=== PATIENT | female | born 1925 | race Caucasian/White ===

== ENCOUNTER 2016-12-22 16:33 | Inpatient (IN) | payer MEDICARE, BC ==
[2016-12-22] VITALS (157 sets, daily range): BP systolic 116; BP diastolic 86–96; PULSE 113; TEMP 100.6; O2SAT 77–95
[~2016-12-22] VITALS: Ht 170.2 cm; Wt 51.7 kg
[~2016-12-22 16:33] MED LIST: AGGRENOX ER 251 CER PO; ALBUTEROL SULFAT3 M3 IH; ANTIVERT 25MG25 MG PO; AQUAZIDE H50 MG PO; BIAXIN 500MG T500 MG PO; CARDIZEM CD 24240 MG PO; CARDIZEM LA240 MG PO; CEFTIN 250250 MG/TAB PO; CEFTIN500 MG PO; COLACE 100100 MG/CAP PO; HYDRODIURIL50 MG PO; LEVAQUIN 2250 MG/TAB; LIPITOR20 MG PO; LUMIGAN 2.5 ML2.5 M1 OP; LUMIGAN 5 ML5 ML OP; MIRALAX PA17 GM/Dose PO; PREMARIN0.3 MG PO; PROAIR HFA0.09 MG/AC IH; RT ADVAIR HFA 1112 G IH; RT SPIRIVA18 MCG IH; TOPROL XL 25MG25 MG PO; TYLENOL 325MG325 MG PO; TYLENOL 8 HR PO; VALIUM 10MG10 MG/TAB PO; VALIUM 5MG T5 MG/TAB PO; ZOFRAN ODT4 MG PO
[2016-12-22 17:15] LABS: BASO % 0.2 % (0.0-2.0); EOS % 0.1 % (0-4.0); GRAN # 9.3 (1.4-6.5); GRAN % 82.1 % (42.2-75.2); HEMATOCRIT 37.7 % (37.0-47.0); LYMPH # 1.3 (1.2-3.4); LYMPH % 11.6 % (20.0-51.0); MEAN CELL VOLUME 90 fl (80.0-100.0); MEAN CORPUSCULAR HGB CONC 32 g/dl (33.0-37.0); MEAN PLATELET VOLUME 9.3 fl (7.4-10.4); MONO # 0.6 (0.1-0.6); MONO % 5.6 % (1.7-9.3); PLATELET COUNT 297 K/mm3 (130-400); RED BLOOD COUNT 4.18 M/mm3 (4.10-5.30); REDCELL DISTRIBUTION WIDTH-CV 12.4 % (11.5-14.5); WHITE BLOOD COUNT 11.3 K/mm3 (4.8-10.8)
[2016-12-22 17:22] LABS: HEMOGLOBIN 11.9 g/dl (12.5-16.0); MEAN CORPUSCULAR HEMOGLOBIN 28 pg (27.0-31.0)
[2016-12-22 17:28] LABS: ADJUSTED CALCIUM 10.2 mg/dL (8.4-10.2); ALBUMIN 4.2 gm/dL (3.5-5.0); BILIRUBIN,TOTAL 0.7 mg/dL (0.0-1.0); C-REACTIVE PROTEIN 4.6 mg/dL (0.0-0.9); CALCIUM 10.4 mg/dL (8.4-10.2); CREATININE, serum 1.12 mg/dL (0.52-1.25); POTASSIUM 3.8 mmol/L (3.4-5.0); TOTAL PROTEIN 9.2 gm/dL (6.4-8.2)
[2016-12-22 18:02] LABS: ARTERIAL BLD GAS O2 SATURATION 88.4 % (92-100); ARTERIAL BLD GAS TCO2 CT 33.2; ARTERIAL BLOOD GAS HCO3 31.8 meq/L (22-26); ARTERIAL BLOOD GAS PO2 53.3 mmHg (80-100); ARTERIAL BLOOD GAS pH 7.46 (7.35-7.45)
[2016-12-22 18:03] LABS: ALLEN TEST NO; ATS? YES
[2016-12-22] MEDS ORDERED: ALBUTEROL0.83 MG/ML IH (19:24)
[2016-12-22] MEDS ORDERED: CITRACAL + D CA1 TAB (19:25)
[2016-12-22] MEDS ORDERED: ARICEPT10 MG PO (19:28)
[2016-12-22] MEDS ORDERED: VITAMIN D 400400 IU PO (19:28)
[2016-12-22] MEDS ORDERED: XALATAN EYE DROPS OP (19:29)
[2016-12-22] MEDS ORDERED: MULTIVITAMIN1 CTB PO (19:30)
[2016-12-22] MEDS ORDERED: K-DUR 10 MEQ T10 MEQ PO (19:31)
[2016-12-22] MEDS ORDERED: SYSTANE BALANCE10 M1 OU (19:33)
[2016-12-22] MEDS ORDERED: SUDAFED CH (19:33)
[2016-12-22] MEDS ORDERED: COLACE 100100 MG/CAP PO (20:17)
[2016-12-22 21:43] LABS: INR 1.2 (0.8-3.0); PROTHROMBIN TIME 13.5 SECONDS (9.7-12.8)
[2016-12-22 21:45] LABS: PARTIAL THROMBOPLASTIN TIME 35.5 SECONDS (26.0-37.0)
[2016-12-23] VITALS (872 sets, daily range): BP systolic 105–129; BP diastolic 53–94; PULSE 89–110; TEMP 98.9–101.1; O2SAT 86–100
[2016-12-23 06:21] LABS: BASO % 0.1 % (0.0-2.0); GRAN # 5.9 (1.4-6.5); LYMPH # 0.9 (1.2-3.4); LYMPH % 12.2 % (20.0-51.0); MEAN CELL VOLUME 93 fl (80.0-100.0); MEAN CORPUSCULAR HGB CONC 31 g/dl (33.0-37.0); MEAN PLATELET VOLUME 9.3 fl (7.4-10.4); MONO # 0.2 (0.1-0.6); MONO % 3.3 % (1.7-9.3); PLATELET COUNT 238 K/mm3 (130-400); RED BLOOD COUNT 3.45 M/mm3 (4.10-5.30); REDCELL DISTRIBUTION WIDTH-CV 12.6 % (11.5-14.5); WHITE BLOOD COUNT 7.1 K/mm3 (4.8-10.8)
[2016-12-23 06:26] LABS: HEMATOCRIT 31.9 % (37.0-47.0); HEMOGLOBIN 9.8 g/dl (12.5-16.0); MEAN CORPUSCULAR HEMOGLOBIN 28 pg (27.0-31.0)
[2016-12-23 06:33] LABS: ADJUSTED CALCIUM 8.9 mg/dL (8.4-10.2); BILIRUBIN,TOTAL 0.5 mg/dL (0.0-1.0); CALCIUM 8.1 mg/dL (8.4-10.2); CREATININE, serum 0.75 mg/dL (0.52-1.25); POTASSIUM 3.3 mmol/L (3.4-5.0); TOTAL PROTEIN 6.9 gm/dL (6.4-8.2)
[2016-12-23 14:48] LABS: PH 5 (5-8); SQUAMOUS EPITHELIAL None Seen /hpf; URINE APPEARANCE Hazy; URINE BACTERIA None Seen /hpf; URINE BILIRUBIN Negative (NEGATIVE); URINE BLOOD 1+ (NEGATIVE); URINE COLOR Yellow; URINE GLUCOSE Negative (NEGATIVE); URINE KETONE Negative (NEGATIVE); URINE UROBILINOGEN Negative (NEGATIVE)
[2016-12-24] VITALS (343 sets, daily range): BP systolic 110–137; BP diastolic 61–75; PULSE 77–94; TEMP 97.1–100.8; O2SAT 61–100
[2016-12-24 05:40] LABS: BASO % 0.2 % (0.0-2.0); GRAN # 4.1 (1.4-6.5); GRAN % 71.7 % (42.2-75.2); LYMPH # 1.4 (1.2-3.4); LYMPH % 24.2 % (20.0-51.0); MEAN CELL VOLUME 90 fl (80.0-100.0); MEAN CORPUSCULAR HGB CONC 31 g/dl (33.0-37.0); MEAN PLATELET VOLUME 9.6 fl (7.4-10.4); MONO # 0.2 (0.1-0.6); MONO % 3.7 % (1.7-9.3); PLATELET COUNT 208 K/mm3 (130-400); RED BLOOD COUNT 3.14 M/mm3 (4.10-5.30); REDCELL DISTRIBUTION WIDTH-CV 12.5 % (11.5-14.5); WHITE BLOOD COUNT 5.7 K/mm3 (4.8-10.8)
[2016-12-24 05:41] LABS: CALCIUM 6.9 mg/dL (8.4-10.2); CREATININE, serum 0.51 mg/dL (0.52-1.25)
[2016-12-24 05:44] LABS: HEMATOCRIT 28.4 % (37.0-47.0); HEMOGLOBIN 8.8 g/dl (12.5-16.0); MEAN CORPUSCULAR HEMOGLOBIN 28 pg (27.0-31.0)
[2016-12-24 05:48] LABS: POTASSIUM 2.8 mmol/L (3.4-5.0)
[2016-12-25] VITALS (7 sets, daily range): BP systolic 114–139; BP diastolic 62–82; PULSE 80–100; TEMP 97.6–98.2
[2016-12-25 06:59] LABS: ADD PATHOLOGY DIFF REVIEW NO
[2016-12-25 07:02] LABS: MEAN CELL VOLUME 89 fl (80.0-100.0); MEAN CORPUSCULAR HGB CONC 32 g/dl (33.0-37.0); MEAN PLATELET VOLUME 9.3 fl (7.4-10.4); PLATELET COUNT 213 K/mm3 (130-400); RED BLOOD COUNT 3.28 M/mm3 (4.10-5.30); REDCELL DISTRIBUTION WIDTH-CV 12.4 % (11.5-14.5); RETIC % 0.9 % (0.5-3.52); WHITE BLOOD COUNT 4.9 K/mm3 (4.8-10.8)
[2016-12-25 07:03] LABS: HEMATOCRIT 29.2 % (37.0-47.0); HEMOGLOBIN 9.3 g/dl (12.5-16.0); MEAN CORPUSCULAR HEMOGLOBIN 28 pg (27.0-31.0)
[2016-12-25 07:19] LABS: CREATININE, serum 0.46 mg/dL (0.52-1.25); MAGNESIUM 1.2 mg/dL (1.6-2.3); POTASSIUM 3.7 mmol/L (3.4-5.0)
[2016-12-25 07:25] LABS: TOTAL IRON BINDING CAPACITY 226 ug/dL (265-497)
[2016-12-25 07:50] LABS: FERRITIN 142 ng/mL (11-264)
[2016-12-25 10:49] LABS: BAND 10 % (0-10); NEUTROPHILS 58 % (42.0-75.2); TOTAL CELLS COUNTED 100
[2016-12-25 10:51] LABS: PLATELET ESTIMATE NORMAL (NORMAL)
[2016-12-26 02:43] VITALS: BP 127/63; PULSE 94; TEMP 98.2
[2016-12-26 09:00] VITALS: BP 125/43; PULSE 94; TEMP 98.5
[2016-12-26 11:48] VITALS: BP 144/80; PULSE 106; TEMP 96.5
[2016-12-26 15:32] VITALS: BP 146/78; PULSE 102; TEMP 98.2
[2016-12-26 20:01] VITALS: BP 120/67; PULSE 90; TEMP 98
[2016-12-27 00:55] VITALS: BP 121/58; PULSE 74; TEMP 96.8
[2016-12-27 04:11] VITALS: BP 135/91; PULSE 94; TEMP 97.5
[2016-12-27 07:47] LABS: CALCIUM 7.7 mg/dL (8.4-10.2); CREATININE, serum 0.5 mg/dL (0.52-1.25); MAGNESIUM 1.8 mg/dL (1.6-2.3); POTASSIUM 3.8 mmol/L (3.4-5.0)
[2016-12-27 12:36] VITALS: BP 151/98; PULSE 90; TEMP 97.5
[2016-12-27 16:09] VITALS: BP 131/65; PULSE 107; TEMP 98.4
[2016-12-27 20:12] VITALS: BP 139/71; PULSE 98; TEMP 98.2
[2016-12-28] VITALS (7 sets, daily range): BP systolic 120–153; BP diastolic 66–85; PULSE 61–114; TEMP 97.7–98.7
[2016-12-29 03:23] VITALS: BP 145/73; PULSE 89; TEMP 97.9
[2016-12-29 08:44] VITALS: BP 175/82; PULSE 79; TEMP 97.9
[2016-12-29] MEDS ORDERED: IPRATROPIUM BROM3 M1 IH ×2 (10:19→10:20)
[2016-12-29] MEDS ORDERED: FERROUS SU325 MG/TAB PO (10:20)
[2016-12-29] MEDS ORDERED: ANTI-DIARRHEAL2 MG PO (10:22)
[2016-12-29] MEDS ORDERED: PREDNISONE20 MG PO (10:24)
[2016-12-29 13:24] VITALS: BP 175/82; PULSE 79; TEMP 97.9
== END 2016-12-29 14:41 | disposition swing bed (61) | DRG 871 ==
LOC: COL.ER 16:33 → IMCU 18:09 → MEDICAL 18:09 → SURG 12-26 14:15 → MEDICAL 12-26 14:15
PROVIDERS: Emergency Medicine; Family Medicine; Internal Medicine; Nurse Practitioner Family
PROC: 02HV33Z Insertion of Infusion Device into Superior Vena Cava, Percutaneous Approach (ICD-10-PCS; principal; 2016-12-23)
DX: A41.9 Sepsis, unspecified organism (principal); J11.00 Influenza due to unidentified influenza virus with unspecified type of pneumonia; E43 Unspecified severe protein-calorie malnutrition; E87.1 Hypo-osmolality and hyponatremia; Z68.1 Body mass index [BMI] 19.9 or less, adult; I10 Essential (primary) hypertension; E78.5 Hyperlipidemia, unspecified; J44.9 Chronic obstructive pulmonary disease, unspecified; Z88.0 Allergy status to penicillin; Z86.73 Personal history of transient ischemic attack (TIA), and cerebral infarction without residual deficits; E83.42 Hypomagnesemia
CPT/HCPCS: 99223-AI; 99232-AI; 99233-AI; 99239; A4315; C1751; J0456; J0696; J1644; J3475; J3480; J7030; J7050; J7512